=== PATIENT | female | born 1990 | race Caucasian/White ===

== ENCOUNTER 2016-07-28 08:51 | Emergency (ER) | payer MEDICAID ==
[2016-07-28] MEDS ORDERED: NS 1,000 ML IV ONE (09:34)
[2016-07-28 10:08] LABS: % IMMATURE GRANULYOCYTES 0.3 % (0.0-1.1); ABSOLUTE IMMATURE GRANULOCYTES 0.03 10^3/uL (0.00-0.10); ADD DIFF? NO; ADD MORPH? NO; ADD SCAN? NO; ATYPICAL LYMPHOCYTE FLAG 0 (0-99); FRAGMENT RBC FLAG 0 (0-99); HEMOGLOBIN 14.6 g/dL (12.6-16.3); LEFT SHIFT FLG 0 (0-99); LIPEMIA HEMOLYSIS FLAG 90 (0-99); MEAN CELL HEMOGLOBIN 31.4 pg (27.9-34.1); MEAN CELL VOLUME 92.5 fL (81.5-99.8); MEAN PLATELET VOLUME 9.3 fL (8.7-11.7); PLATELET CLUMPS FLAG 0 (0-99); PLATELET COUNT 273 10^3/uL (150-400); RED BLOOD CELL COUNT 4.65 10^6/uL (4.18-5.33); RED CELL DISTRIBUTION WIDTH 12.5 % (11.5-15.2)
[2016-07-28 10:16] LABS: COLOR YELLOW; LEUKOCYTE ESTERASE,URINE 2+ (NEGATIVE); NITRITE,URINE NEGATIVE (NEGATIVE)
[2016-07-28 10:23] LABS: ANION GAP 11 mEq/L (8-16); CALCIUM 9.2 mg/dL (8.5-10.4); CARBON DIOXIDE 23 mEq/l (22-31); CHLORIDE 104 mEq/L (97-110); CREATININE 0.7 mg/dL (0.6-1.0); GLOMERULAR FILTRATION RATE > 60; GLUCOSE 92 mg/dL (70-100); POTASSIUM 4.3 mEq/L (3.5-5.2); SODIUM 138 mEq/L (134-144)
[2016-07-28 10:25] LABS: BACTERIA TRACE /hpf (NONE SEEN); MUCUS TRACE /lpf (NONE-1+); RBC,URINE 15-25 /hpf (0-3); WBC,URINE 50-182 /hpf (0-3)
[2016-07-28] MEDS ORDERED: ACETAMINOPHEN 500 MG TAB PO ONE (10:26)
[2016-07-28 10:51] VITALS: RESP 16
--- NOTE | 2016-07-28 13:41 | EDPHY ---
H & P Stated Complaint: Subj fever, dysuria x5 days;IUD x 3 wks;seen @ [facility] Time Seen by Provider: 07/28/16 09:14 HPI/ROS: CHIEF COMPLAINT: Lower abdominal pain HISTORY OF PRESENT ILLNESS: This is a 25-year-old female with an IUD in place, [facility], who presents with left lower abdominal pain and fever. She has had intermittent fever for the last 3 days. She describes some mid low back pain, also for the last 3 days. She denies flank pain. This morning she developed left lower abdominal pain that she describes as a burning or aching sensation. This pain is constant. She denies dysuria, urinary frequency or urgency. She has had nausea but no vomiting. She denies diarrhea. She had a normal bowel movement yesterday morning. She reports a thick vaginal discharge. No history of sexually transmitted disease. . REVIEW OF SYSTEMS: A ten point review of systems was performed and is negative with the exception of the items mentioned in the HPI. Source: Patient Exam Limitations: No limitations - Personal History LMP (Females 10-55): IUD In Place Current Tetanus Diphtheria and Acellular Pertussis (TDAP): Yes - Medical/Surgical History Other PMH: depression. 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 - Physical Exam Exam: General Appearance: Alert. Vital signs reviewed. Temperature 38.1, heart rate 116, blood pressure 105/86 at triage. Eyes: Pupils equal and round, no conjunctival injection, no discharge. Anicteric. ENT, Mouth: Mucous membranes are moist, no oropharyngeal erythema or edema. Neck: No lymphadenopathy, supple. Respiratory: Lungs are clear to auscultation; no wheezes, rales, or rhonchi. Cardiovascular: Regular rate and rhythm; no murmur, rub, or gallop. Gastrointestinal: Abdomen is soft with lower abdominal tenderness, no guarding , no masses or organomegaly, bowel sounds normal. Pelvic: IUD strings visible at the cervical os. There cervical motion tenderness. No adnexal tenderness or enlargement. No uterine enlargement. There is a yellow casas thick vaginal discharge present. The cervix is friable. Skin: Warm and dry, no rashes on exposed skin, normal color. Back: Nontender to palpation over the thoracolumbar spine. No CVAT. Extremities: No lower extremity edema, no calf tenderness or swelling. Neurological: Alert and oriented. Moving all four extremities easily and equally. Psychiatric: Normal affect. Constitutional: Initial Vital Signs Temperature (C) 38.1 C 07/28/16 08:52 Heart Rate 116 H 07/28/16 08:52 Respiratory Rate 18 07/28/16 08:52 Blood Pressure 105/86 H 07/28/16 08:52 O2 Sat (%) 97 07/28/16 08:52 O2 Delivery Mode Room Air Allergies/Adverse Reactions: No Known Allergies Allergy (Unverified 07/28/16 09:00) Home Medications: Medication Instructions Recorded Acyclovir [Zovirax 400 mg (*)] 400 mg PO 07/28/16 Cephalexin [Keflex] 500 mg PO BID #10 cap 07/28/16 Doxycycline Hyclate [Doxycycline] 100 mg PO BID #13 cap 07/28/16 buPROPion [Wellbutrin] 100 mg PO 07/28/16 Medical Decision Making Procedures: IUD removal. Indication for removal is fever and cervical motion tenderness suggestive of pelvic inflammatory disease. Patient was placed in lithotomy position. Using a sponge stick and gentle traction her IUD was easily removed. There was a scant amount of bleeding following this procedure. She tolerated the procedure well. The procedure was performed by me. ED Course/Re-evaluation: She received Tylenol for fever with subsequent defervescence. I blood work including CBC, chemistries, and test reviewed. Beta HCG is negative; she is not . White blood cell count is very mildly elevated at 9.66 with a left shift. Chemistries are normal. Urinalysis is positive for blood, leukocyte esterase, red blood cells and white blood cells, and a trace of bacteria. She does not have CVA tenderness. I am concerned about the possibility of a urinary tract infection. I am also concerned about PID with fever and cervical motion tenderness in the setting of IUD placement 3 weeks ago. I spoke with the on-call OBGYN physician, Dr. Darlene Burns. She recommends removing the IUD and treating for both urinary tract infection and PID. She recommends a dose of ceftriaxone in the emergency department followed by oral doxycycline and Keflex. Patient received IV ceftriaxone 1 g in the emergency department. She is being started on oral doxycycline and Keflex. I removed her IUD without difficulty. At the time of pelvic examination cultures were obtained. I reviewed the wet prep. I discussed the diagnoses of urinary tract infection and pelvic inflammatory disease with the patient. She understands that she is now without control. She will not have sexual intercourse until she has established control. [facility] Dr. Darlene Burns early this coming week (within the next 2-3 days). We reviewed the danger signs that should prompt her to return. She understands that some of her laboratory results are pending. She underwent serial abdominal examinations while in the emergency department. At no time did she have peritoneal signs. Differential Diagnosis: I considered a differential diagnosis that includes but is not limited to urinary tract infection, pyelonephritis, pelvic inflammatory disease, intrauterine or ectopic , tubo-ovarian abscess, ovarian cyst, and ovarian torsion. - Data Points Laboratory Results: Laboratory Results 07/28/16 09:55 07/28/16 09:55 Medications Given: Discontinued Medications Acetaminophen (Tylenol) 1,000 mg PO EDNOW ONE Stop: 07/28/16 10:27 Last Admin: 07/28/16 10:28 Dose: 1,000 mg Sodium Chloride (Ns) 1,000 mls @ 0 mls/hr IV ONCE ONE PRN Reason: Wide Open Stop: 07/28/16 09:35 Last Admin: 07/28/16 09:55 Dose: 1,000 mls Ceftriaxone Sodium/Dextrose (Rocephin 1 Gm (Premix)) 50 mls @ 100 mls/hr IV EDNOW ONE PRN Reason: Protocol Stop: 07/28/16 13:02 Last Admin: 07/28/16 12:48 Dose: 50 mls Departure - Departure Disposition: Home, Routine, Self-Care Clinical Impression: Pelvic inflammatory disease Urinary tract infection Qualifiers: Urinary tract infection type: acute cystitis Hematuria presence: with hematuria Qualified Code(s): N30.01 - Acute cystitis with hematuria Condition: Good Instructions: Pelvic Inflammatory Disease (ED), Urinary Tract Infection in Women (ED) Additional Instructions: Adult Pain & Fever Control: We recommend Acetaminophen (Tylenol) and Ibuprofen (Motrin,Advil) for pain and fever control. When fever is high or pain severe, both drugs can be used at the same time, but at different intervals. Please note the time differences. Your dose is: Acetaminophen 650mg every 4 to 6 hours Ibuprofen 400mg every 6 hours with food OR Note: do not take Acetaminophen with Hydrocodone (Vicodin, Lortab) or Oycodone (Percocet). These medications also contain Acetaminophen. No more than 3000mg of Acetaminophen should be taken in 24 hours (for an adult).Your IUD has been removed. You should not have intercourse until you obtain another method of control. Based upon the urinalysis done today, you have a urinary tract infection/ possible kidney infection. I am also concerned about the possibility of pelvic inflammatory disease. You have been given a dose of intravenous antibiotic, ceftriaxone, in the emergency department. You are being started on 2 oral antibiotics--doxycycline and Keflex. These medications will treat both of the problems that are of concern. You need to have follow-up this week. [facility] or [facility], that is fine. I am also giving you the contact information for Dr. Darlene Burns, chicken catcher. I have spoken with her about you and if you call for an appointment she will see you in her office on Saturday or Saturday. Referrals: Ary Weber MD [Primary Care Provider] - As per Instructions Darlene Burns MD [Medical Doctor] - As per Instructions Prescriptions: Cephalexin [Keflex] 500 mg PO BID #10 cap Doxycycline Hyclate [Doxycycline] 100 mg PO BID #13 cap
[2016-07-28 14:26] VITALS: BP 114/72; PULSE 75; TEMP 99.5; O2SAT 98
[2016-07-30 14:20] LABS: CHLAMYDIA AMPLIFICATION GENPRB NEGATIVE (NEGATIVE)
== END 2016-07-28 14:26 | disposition home or self-care (01) ==
DX: N73.9 Female pelvic inflammatory disease, unspecified (principal); N30.01 Acute cystitis with hematuria; B96.20 Unspecified Escherichia coli [E. coli] as the cause of diseases classified elsewhere
CPT/HCPCS: 96365; J0696

== ENCOUNTER 2016-07-30 15:13 | Emergency (ER) | payer MEDICAID ==
[2016-07-30 15:26] VITALS: RESP 16
--- NOTE | 2016-07-30 17:09 | EDPHY ---
H & P Source: Patient, Old records Exam Limitations: No limitations - Personal History Current Tetanus/Diphtheria Vaccine: Yes Current Tetanus Diphtheria and Acellular Pertussis (TDAP): Yes - Medical/Surgical History Hx Asthma: Yes Hx Chronic Respiratory Disease: No Hx Diabetes: No Hx Cardiac Disease: No Hx Renal Disease: No Hx Cirrhosis: No Hx Alcoholism: No Hx HIV/AIDS: No Hx Splenectomy or Spleen Trauma: No Other PMH: depression. herpes - Social History Smoking Status: Never smoked HPI/ROS: CHIEF COMPLAINT: Flank pain, abdominal pain, fevers HISTORY OF PRESENT ILLNESS: the patient received 2 days ago and diagnosed with UTI and pelvic inflammatory disease. At that time she was prescribed doxycycline and Keflex. She has been taking that as prescribed. She has also been taking ibuprofen and Tylenol as needed. She reports that she is now having right-sided flank pain that is mild to moderate at times, and other times severe. Worse with palpation and movement. Dysuria has improved but now has vaginal itching. No vaginal discharge or pain. The pain on the right flank radiates down into the right groin. No nausea or vomiting. No cough or congestion. No body aches or headaches. Intermittent fever that response to ibuprofen and Tylenol. does mention that she also feels she has a yeast infection at this time as she is not having vaginal itching. No vaginal discharge or pain. No other associated complaints or modifying factors. PREVIOUS ABDOMINAL SURGERIES/DIAGNOSES: UTI, PID diagnosed 2 days ago REVIEW OF SYSTEMS: Ten systems reviewed and are negative unless otherwise noted in the HPI EXAMINATION: General Appearance: Alert, no distress, reading a book Head: normocephalic, atraumatic Eyes: Pupils equal and round, no conjunctival pallor or injection ENT, Mouth: Mucous membranes moist. Uvula midline. No erythema or edema Neck: Normal inspection, supple, non-tender Respiratory: Lungs are clear to auscultation. No wheezing, rhonchi or crackles. Cardiovascular: Regular rate and rhythm . No murmur. Pulses intact distally. Gastrointestinal: Abdomen is soft With mild right CVA tenderness.Mild tenderness of the left lower quadrant. No right lower quadrant tenderness. No tympany. No rigidity. Nonacute abdomen. Neurological: A&O, nonfocal, normal gait . Strength is symmetric in all limbs. Skin: Warm and dry, no rash Extremities: Nontender, no pedal edema Psychiatric: Mood and affect normal DIFFERENTIAL DIAGNOSES: Including but not limited to Pyelonephritis, renal colic, renal stone, ureteral stone, UTI, yeast infection MDM: 5:15p.m. Abdominal pain that now involves her right flank. Recent UTI diagnosis. She has been taking doxycycline and Keflex. We will repeat her laboratory studies. Her vital signs are within normal limits. She does not trigger SIRS, nor did she appear septic. I will treat her presumptive yeast infection with Diflucan by mouth. 5:55 p.m. notified by radiologist Dr. Howard of ultrasound findings. Ultrasound of the kidneys is negative for any acute findings. Ultrasound of the pelvis is pending at this time. 7:00 p.m. pelvic ultrasound is within normal limits. NO torsion. NO abscess. NO TOA. I have re-examined the patient. She is feeling significantly better at this time as she has been asking for food. SHe wants to be discharged home. I did offer a CT scan of the abdomen and pelvis for further delineation, but she has declined. Will provide pain medication and nausea medication for her. SHe is to follow up with primary care physician and/or electrical manufacturing technician for ongoing workup. Return to the ER should she change her mind about the CT scan or should she have any worsening symptoms. Discharged home in stable conditions with normal vital signs. ED Precautions: Worsening pain. Fever. Bloody stools. Bloody emesis. Constipation or diarrhea. SUPERVISION: Patient was evaluated in conjunction with the supervising physician. Please see their note for details. (Jatin Blackburn) Constitutional: Initial Vital Signs Temperature (C) 98.4 F 07/30/16 15:23 Heart Rate 90 07/30/16 15:23 Respiratory Rate 16 07/30/16 15:23 Blood Pressure 112/80 07/30/16 15:23 O2 Sat (%) 97 07/30/16 15:23 O2 Delivery Mode Room Air Allergies/Adverse Reactions: No Known Allergies Allergy (Unverified 07/28/16 09:00) Home Medications: Medication Instructions Recorded Acyclovir [Zovirax 400 mg (*)] 400 mg PO 07/28/16 Cephalexin [Keflex] 500 mg PO BID #10 cap 07/28/16 Doxycycline Hyclate [Doxycycline] 100 mg PO BID #13 cap 07/28/16 buPROPion [Wellbutrin] 100 mg PO 07/28/16 Hydrocodone/APAP 5/325 [Sanford 1 - 2 tab PO Q4H PRN #10 tab 07/30/16 5/325 (*)] Ondansetron Odt [Zofran Odt 4 mg 4 mg PO Q6 PRN #12 tab 07/30/16 (*)] Medical Decision Making Other Provider: This patient was evaluated and managed by the physician hearing aid assistant. I discussed the case with the PA as it progressed, reviewed the chart, and agree with the plan of care as documented. I am the secondary supervising physician. (Holli Casillas) - Data Points Laboratory Results: Laboratory Results 07/30/16 17:30 07/30/16 17:30 Medications Given: Discontinued Medications Hydrocodone Bitart/Acetaminophen (Sanford 5/325mg Prepack#6) 1 btl TAKEHOME EDNOW ONE Stop: 07/30/16 18:59 Last Admin: 07/30/16 19:09 Dose: 1 btl Fluconazole (Diflucan) 150 mg PO ONCE ONE Stop: 07/30/16 17:19 Last Admin: 07/30/16 17:40 Dose: 150 mg Sodium Chloride (Ns) 1,000 mls @ 0 mls/hr IV ONCE ONE PRN Reason: Wide Open Stop: 07/30/16 17:19 Last Admin: 07/30/16 17:37 Dose: 1,000 mls Ondansetron HCl (Zofran Odt 4 Mg Prepack#2) 1 btl TAKEHOME EDNOW ONE Stop: 07/30/16 19:00 Last Admin: 07/30/16 19:10 Dose: 1 btl Departure - Departure Disposition: Home, Routine, Self-Care Clinical Impression: Acute right flank pain, Pelvic pain Abdominal pain Qualifiers: Abdominal location: lower abdomen, unspecified Qualified Code(s): R10.30 - Lower abdominal pain, unspecified Condition: Good Instructions: Hydrocodone/Acetaminophen (By mouth), Ondansetron (By mouth), Abdominal Pain (ED) Additional Instructions: return to ER should she change her mind about the CT scan. Return to the ER for worsening pain, fever, nausea or vomiting. Follow up with primary care physician otherwise Referrals: Ary Weber MD [Primary Care Provider] - As per Instructions Prescriptions: Hydrocodone/APAP 5/325 [Sanford 5/325 (*)] 1 - 2 tab PO Q4H PRN #10 tab PRN Reason: Pain, Moderate Ondansetron Odt [Zofran Odt 4 mg (*)] 4 mg PO Q6 PRN #12 tab PRN Reason: Nausea/Vomiting, Use 1st
[2016-07-30] MEDS ORDERED: FLUCONAZOLE 150 MG TAB PO ONE (17:18)
[2016-07-30] MEDS ORDERED: NS 1,000 ML IV ONE (17:18)
[2016-07-30 17:41] LABS: COLOR PALE YELLOW; LEUKOCYTE ESTERASE,URINE NEGATIVE (NEGATIVE); NITRITE,URINE NEGATIVE (NEGATIVE)
[2016-07-30 17:44] LABS: BACTERIA TRACE /hpf (NONE SEEN)
[2016-07-30 17:47] LABS: % IMMATURE GRANULYOCYTES 0.2 % (0.0-1.1); ABSOLUTE IMMATURE GRANULOCYTES 0.02 10^3/uL (0.00-0.10); ADD DIFF? NO; ADD MORPH? NO; ADD SCAN? NO; ATYPICAL LYMPHOCYTE FLAG 10 (0-99); FRAGMENT RBC FLAG 0 (0-99); HEMATOCRIT 40.7 % (38.0-47.0); HEMOGLOBIN 13.8 g/dL (12.6-16.3); LEFT SHIFT FLG 10 (0-99); LIPEMIA HEMOLYSIS FLAG 90 (0-99); MEAN CELL HEMOGLOBIN 31.5 pg (27.9-34.1); MEAN CELL HEMOGLOBIN CONCENTR. 33.9 g/dL (32.4-36.7); MEAN CELL VOLUME 92.9 fL (81.5-99.8); MEAN PLATELET VOLUME 9.7 fL (8.7-11.7); PLATELET CLUMPS FLAG 0 (0-99); PLATELET COUNT 316 10^3/uL (150-400); RED BLOOD CELL COUNT 4.38 10^6/uL (4.18-5.33); RED CELL DISTRIBUTION WIDTH 12.6 % (11.5-15.2)
[2016-07-30 18:05] LABS: ALANINE AMINOTRANSFERASE 20 IU/L (9-52); ALKALINE PHOSPHATASE 70 IU/L (38-126); ANION GAP 11 mEq/L (8-16); ASPARTATE AMINOTRANSFERASE 19 IU/L (14-46); BILIRUBIN,TOTAL 0.5 mg/dL (0.1-1.4); BILIRUBIN-CONJUGATED 0.3 mg/dL (0.0-0.5); BILIRUBIN-UNCONJUGATED 0.2 mg/dL (0.0-1.1); CALCIUM 9.1 mg/dL (8.5-10.4); CARBON DIOXIDE 25 mEq/l (22-31); CHLORIDE 104 mEq/L (97-110); CREATININE 0.8 mg/dL (0.6-1.0); GLOMERULAR FILTRATION RATE > 60; GLUCOSE 88 mg/dL (70-100); POTASSIUM 3.7 mEq/L (3.5-5.2); SODIUM 140 mEq/L (134-144); TOTAL PROTEIN 7.8 g/dL (6.3-8.2)
[2016-07-30] MEDS ORDERED: HYDROCOD/APAP 5/325 PREPACK#6 BTL TAKEHOME ONE (18:58)
[2016-07-30] MEDS ORDERED: ONDANSETRON 4MG PREPACK#2 BTL TAKEHOME ONE (18:59)
[2016-07-30 19:17] VITALS: BP 128/90; PULSE 87; TEMP 98.2; O2SAT 98
== END 2016-07-30 19:15 | disposition home or self-care (01) ==
DX: R10.32 Left lower quadrant pain (principal); R10.2 Pelvic and perineal pain; J45.909 Unspecified asthma, uncomplicated

== ENCOUNTER 2018-04-24 06:56 | Emergency (ER) | payer MEDICAID ==
[2018-04-24 07:02] VITALS: BP 113/83
--- NOTE | 2018-04-24 07:31 | EDPHY ---
H & P Time Seen by Provider: 04/24/18 07:17 HPI/ROS: CHIEF COMPLAINT: Cough and shortness of breath HISTORY OF PRESENT ILLNESS: Patient was exposed to mold in a storage box about 3 weeks ago and says she has been feeling more short of breath since then. She had a little bit of a cough over the last 2 days and today developed some mild intermittent sharp stabbing left chest pain which only lasts for a 2nd at a time. She thinks it is due to mold. She has been using her asthma inhaler but it is several years old, she has only used it twice a day over the last couple of days. Not associated with hemoptysis or leg swelling, no fever or chills, shortness of breath is not exertional, chest pain does not radiate. She describes being a little bit dizzy today, lightheaded not vertigo. REVIEW OF SYSTEMS: Eye: no change in vision ENT: no sore throat Cardiac: HPI no palpitations or syncope Pulmonary: HPI Abdomen: no vomiting, diarrhea, abdominal pain Musculoskeletal: no back pain or leg swelling Skin: no rash Neuro: no headache Constitutional: no fever : no urinary symptoms Not . A comprehensive 10 point review of systems is otherwise negative aside from elements mentioned in the history of present illness. PAST MEDICAL HISTORY: Includes asthma and depression. No estrogen hormone use. Family history: Negative for premature coronary disease or venous thromboembolism Social history: Negative for tobacco smoking, recent travel or immobilization or surgery General Appearance: Alert and conversant, cooperative. Eyes: No scleral icterus. ENT, Mouth: Normal mucous membranes. No angioedema. Normal voice and no stridor or drooling. Respiratory: Normal respiratory effort, breath sounds equal, expiratory wheezes on forced expiration only. Speaks in full sentences. No crepitus. Cardiovascular: Regular rate and rhythm. Gastrointestinal: Abdomen is soft and non tender. Neurological: Alert, face symmetric, normal motor and sensory in extremities. Skin: No urticaria. Musculoskeletal: No calf tenderness. Legs are symmetric. Psychiatric: Not agitated. Emergency Department course/MDM: Patient likely has exacerbation of her bronchospasm or asthma. She has some faint wheezing and a cough today. Her left-sided chest discomfort is much more likely to be inflammatory or musculoskeletal, I think it would be very unlikely to be acute coronary syndrome or cardiac, aneurysm, pulmonary embolism, pneumothorax. Prescription for albuterol inhaler, prednisone for 4 days discussed and consented. She is referred to [facility] for Medicaid follow-up as well as on-call provider for the ED. PERC negative; low clinical likelihood of PE prior to rule application. Smoking Status: Never smoked Constitutional: Initial Vital Signs Temperature (C) 36.6 C 04/24/18 07:00 Heart Rate 79 04/24/18 07:00 Respiratory Rate 16 04/24/18 07:00 Blood Pressure 113/83 H 04/24/18 07:00 O2 Sat (%) 99 04/24/18 07:00 O2 Delivery Mode Room Air Allergies/Adverse Reactions: cat dander Allergy (Verified 04/24/18 07:02) dog dander Allergy (Verified 04/24/18 07:03) Home Medications: Medication Instructions Recorded Albuterol Hfa Anes Only [Proair 2 puffs IH QID #1 mdi 04/24/18 Hfa Icu (*)] predniSONE [prednisone 20mg (RX)] 49 mg PO DAILY 4 Days tab 04/24/18 MDM/Departure - Depart Disposition: Home, Routine, Self-Care Clinical Impression: Bronchospasm Exacerbation of asthma Qualifiers: Asthma severity: mild Asthma persistence: unspecified Qualified Code(s): J45.901 - Unspecified asthma with (acute) exacerbation Condition: Good Instructions: Bronchospasm (ED) Additional Instructions: Please call [facility] today to arrange followup in the office next week. Prescriptions: Albuterol Hfa Anes Only [Proair Hfa Icu (*)] 2 puffs IH QID #1 mdi predniSONE [prednisone 20mg (RX)] 49 mg PO DAILY 4 Days tab Referrals: Onel Yang MD [Medical Doctor] - As per Instructions [facility],. [Clinic] - As per Instructions
== END 2018-04-24 07:38 | disposition home or self-care (01) ==
DX: J98.01 Acute bronchospasm (principal); J45.901 Unspecified asthma with (acute) exacerbation